=== PATIENT | female | born 1935 | race African-American/Black ===

== ENCOUNTER 2016-10-04 08:34 | Emergency (ER) | payer MEDICARE ==
--- NOTE | 2016-10-04 10:07 | ER Document Report ---
ED Head/Face/Scalp Injury - General Chief Complaint: Facial Injury Stated Complaint: FACE PAIN Notes: Patient is an 80-year-old female presents emergency department after a fall on Tuesday and came in for evaluation. Patient states that she was walking with family when she tripped over a speed bump and landed on the left part of her face. His any headache, loss of consciousness, vomiting, vision changes. She does have left. Orbital swelling and pain with an abrasion under her left eye. She is not on blood thinners otherwise denies any other complaints. She does not have any upper extremity or lower extremity pain. His any neck pain. Past medical history significant for hypertension Past surgical history significant for hysterectomy and tubal ligation Social history significant for a occasional alcohol use Allergies: Denies PCP is Dr. Walsh TRAVEL OUTSIDE OF THE [place] IN LAST 30 DAYS: No - Related Data Allergies/Adverse Reactions: No Known Drug Allergies Allergy (Verified 10/04/16 08:46) BEE STINGS Adverse Reaction (Uncoded 10/04/16 08:46) Dizziness Past Medical History - General Information source: Parent, Relative - son - Social History Smoking Status: Never Smoker Chew tobacco use (# tins/day): No Frequency of alcohol use: None Drug Abuse: None Family History: Reviewed & Not Pertinent Patient has suicidal ideation: No Patient has homicidal ideation: No - Past Medical History Cardiac Medical History: Reports: Hx Hypertension - CONTROLLED WITH MEDS Denies: Hx Heart Attack Pulmonary Medical History: Denies: Hx Asthma Neurological Medical History: Denies: Hx Cerebrovascular Accident, Hx Seizures Renal/ Medical History: Denies: Hx Peritoneal Dialysis GI Medical History: Denies: Hx Hepatitis, Hx Hiatal Hernia, Hx Ulcer Infectious Medical History: Denies: Hx Hepatitis Past Surgical History: Reports: Hx Hysterectomy. Denies: Hx Mastectomy, Hx Open Heart Surgery, Hx Pacemaker Review of Systems - Review of Systems Constitutional: No symptoms reported EENT: denies: Eye pain, Eye discharge, Blurred vision, Tearing, Double vision Cardiovascular: No symptoms reported Respiratory: No symptoms reported Gastrointestinal: No symptoms reported Genitourinary: No symptoms reported Female Genitourinary: No symptoms reported Musculoskeletal: No symptoms reported Skin: See HPI Hematologic/Lymphatic: No symptoms reported Neurological/Psychological: No symptoms reported Physical Exam - Vital signs Vitals: Temp Pulse Resp BP Pulse Ox 98.0 F 70 16 148/94 H 97 02/13/17 08:44 10/04/16 08:44 10/04/16 08:44 10/04/16 08:44 10/04/16 08:44 - Notes Notes: PHYSICAL EXAM GENERAL: Alert, interacts well. HEAD: Normocephalic, atraumatic. EYES: Pupils equal, round, and reactive to light. Extraocular movements intact. Evidence of left inferior periorbital swelling with superficial abrasion. Tender to palpation otherwise no other deformities. ENT: Oral mucosa moist, tongue midline. NECK: Full range of motion. Supple. Trachea midline. LUNGS: Clear to auscultation bilaterally, no wheezes, rales, or rhonchi. No respiratory distress. HEART: Regular rate and rhythm. No murmurs, gallops, or rubs. ABDOMEN: Soft, nondistended, nontender. No guarding, rebound, or rigidity.. Bowel sounds present in all 4 quadrants. EXTREMITIES: Pelvic rock test negative for pain Moves all 4 extremities spontaneously. No edema, radial and dorsalis pedis pulses 2/4 bilaterally. No cyanosis. NEUROLOGICAL: Alert and oriented x3. Normal speech. PSYCH: Normal affect, normal mood. SKIN: Warm, dry, normal turgor. No rashes or lesions noted. Course - Re-evaluation Re-evalutation: 10/04/16 11:46 Patient is an 80-year-old female presents emergency department after fall on Tuesday. She was felt is appropriate to come be evaluated and not for any changes in her symptoms. No acute findings on CT of head neck or facial bones. Will discharge patient home with instruction to follow up with the primary care provider as needed. Per [facility] protocol and guidelines, this case was discussed with supervising physician Dr. Louisa Reed prior to discharge - Vital Signs Vital signs: Temp Pulse Resp BP Pulse Ox 98.0 F 70 16 148/94 H 97 10/04/16 08:44 10/04/16 08:44 10/04/16 08:44 10/04/16 08:44 10/04/16 08:44 - Diagnostic Test Radiology reviewed: Image reviewed, Reports reviewed Discharge - Discharge Clinical Impression: Fall Qualifiers: Encounter type: initial encounter Qualified Code(s): W19.XXXA - Unspecified fall, initial encounter Condition: Good Disposition: HOME, SELF-CARE Instructions: Acetaminophen Additional Instructions: Abrasions of the Face A scraping injury of the face can result in scarring. While not as prone to infection as abrasions elsewhere, a facial abrasion requires careful care to minimize scar. Usually the abrasions cannot be dressed. Standard treatment is to apply a thin coating of an antibiotic ointment to the scrapes frequently (two or three times a day) until the abrasions are healed. Wash the wound daily with a mild soap (like Phisoderm) to remove excess crusting and debris. Stay away from dirt and irritating chemicals. Complete healing may take anywhere from ten days to a month. The healing time depends on the depth of the abrasion and on the amount of crushing of underlying tissues which occurred. Once healing is complete, use a sunscreen on the area for about six months. If any signs of infection occur (swelling, redness, increasing tenderness, red streaks, profuse purulent drainage from the abrasion, tender lumps in the neck on the side of the abrasion, or fever), see the doctor immediately. Soap Cleansing Gently wash the wound daily using a mild soap (like Ivory, Phisoderm, Neutrogena). Use warm water, rubbing gently until all debris, ooze, and crusting have been washed from the wound. Allow to dry briefly (about 10 minutes) after cleaning. Repeat this cleansing at least three times a day for the first two days and then once or twice a day. Forms: Elevated Blood Pressure Referrals: PAIGE CONTI [Primary Care Provider] - Follow up as needed
[2016-10-04 12:18] VITALS: BP 140/88
== END 2016-10-04 12:15 | disposition home or self-care (01) ==
LOC: ER 08:34
DX: S09.93XA Unspecified injury of face, initial encounter (principal); S00.81XA Abrasion of other part of head, initial encounter; I10 Essential (primary) hypertension; W01.198A Fall on same level from slipping, tripping and stumbling with subsequent striking against other object, initial encounter; Z91.030 Bee allergy status; Z90.710 Acquired absence of both cervix and uterus
CPT/HCPCS: 99284; 70450; 70486; 72125; L0120

== ENCOUNTER 2017-09-04 20:07 | Emergency (ER) | payer MEDICARE ==
[2017-09-04] MEDS ORDERED: NORMAL SALINE 1000 ML 1,000 ML IV ONE (21:50)
--- NOTE | 2017-09-04 23:21 | ER Document Report ---
ED Medical Screen (RME) - General Chief Complaint: Abdominal Pain Stated Complaint: ABDOMINAL PAIN Time Seen by Provider: 09/04/17 23:18 Mode of Arrival: Wheelchair Information source: Patient Notes: Patient presents complaining of denies any nausea, vomiting or diarrhea. Patient denies any fever or urinary symptoms. Patient does report an episode of a small amount of blood in her stool. Patient does report a history of diverticulitis and suspects the same today. Hx; HTN, diverticulitis, tubal ligation, partial hysterectomy I have greeted and performed a rapid initial assessment of this patient. A comprehensive ED assessment and evaluation of the patient, analysis of test results and completion of the medical decision making process will be conducted by additional ED providers. TRAVEL OUTSIDE OF THE [place] IN LAST 30 DAYS: No - Related Data Allergies/Adverse Reactions: No Known Drug Allergies Allergy (Verified 09/04/17 20:18) BEE STINGS Adverse Reaction (Uncoded 09/04/17 20:18) Dizziness Past Medical History - Past Medical History Cardiac Medical History: Reports: Hx Hypertension - CONTROLLED WITH MEDS Denies: Hx Heart Attack Pulmonary Medical History: Denies: Hx Asthma Neurological Medical History: Denies: Hx Cerebrovascular Accident, Hx Seizures Renal/ Medical History: Denies: Hx Peritoneal Dialysis GI Medical History: Denies: Hx Hepatitis, Hx Hiatal Hernia, Hx Ulcer Infectious Medical History: Denies: Hx Hepatitis Past Surgical History: Reports: Hx Hysterectomy. Denies: Hx Mastectomy, Hx Open Heart Surgery, Hx Pacemaker Physical Exam - Vital signs Vitals: Temp Pulse Resp BP Pulse Ox 99.0 F 120 H 18 173/79 H 94 09/04/17 20:17 09/04/17 20:17 09/04/17 20:17 09/04/17 20:17 09/04/17 20:17 - Abdominal Tenderness: Tender - Left lower quadrant Course - Vital Signs Vital signs: Temp Pulse Resp BP Pulse Ox 99.0 F 120 H 18 157/87 H 94 09/04/17 20:17 09/04/17 20:17 09/04/17 20:17 09/04/17 20:47 09/04/17 20:17
[2017-09-05 00:02] LABS: ABSOLUTE BASOPHILS # (AUTO) 0.1 10^3/uL (0.0-0.2); ABSOLUTE EOSINOPHILS # (AUTO) 0.1 10^3/uL (0.0-0.6); ABSOLUTE LYMPHOCYTES (AUTO) 2.2 10^3/uL (0.5-4.7); ABSOLUTE MONOCYTES (AUTO) 1.4 10^3/uL (0.1-1.4); ABSOLUTE NEUT (AUTO) 11.9 10^3/uL (1.7-8.2); BASOPHILS % (AUTO) 0.4 % (0-2); EOSINOPHILS % (AUTO) 0.4 % (0-6); HEMATOCRIT 43.1 % (36.0-47.0); HEMOGLOBIN 14.1 g/dL (12.0-15.5); LYMPHOCYTES % (AUTO) 14.1 % (13-45); MEAN CORPUSCULAR HEMOGLOBIN 29.3 pg (27.0-33.4); MEAN CORPUSCULAR HGB CONC 32.7 g/dL (32.0-36.0); MEAN CORPUSCULAR VOLUME 90 fl (80-97); MONOCYTES % (AUTO) 8.9 % (3-13); RED BLOOD COUNT 4.81 10^6/uL (3.72-5.28); RED CELL DISTRIBUTION WIDTH 13.3 % (11.5-14.0); SEGMENTED NEUTROPHILS % (AUTO) 76.2 % (42-78); TOTAL CELLS COUNTED % (AUTO) 100 %; WHITE BLOOD COUNT 15.6 10^3/uL (4.0-10.5)
[2017-09-05 00:07] LABS: INTERNATIONAL RATION (INR) 0.93; PARTIAL THROMBOPLASTIN TIME 32.7 SEC (23.5-35.8); PROTHROMBIN TIME 13.1 SEC (11.4-15.4)
[2017-09-05 00:24] LABS: PLATELET COUNT 103 10^3/uL (150-450)
[2017-09-05] MEDS ORDERED: MORPHINE SULFATE 10 MG/ML INJ IV ONE (00:37)
[2017-09-05] MEDS ORDERED: ONDANSETRON HCL INJ/PF 4 MG/2 ML SDV IV ONE (00:37)
--- NOTE | 2017-09-05 01:17 | RADIOLOGY REPORT (SQ) ---
EXAM DESCRIPTION: KUB/ABDOMEN (SINGLE VIEW) CLINICAL HISTORY: LLQ pain COMPARISON: None. FINDINGS: Single view of the abdomen. No dilated loops of large or small bowel. No free intraperitoneal air. Degenerative change of the lumbar spine. No definite abnormal calcifications. IMPRESSION: Nonobstructive bowel gas pattern.
[2017-09-05 01:18] LABS: ALANINE AMINOTRANSFERASE 22 U/L (9-52); ALBUMIN 3.8 g/dL (3.5-5.0); ALKALINE PHOSPHATASE 58 U/L (38-126); ANION GAP 14 (5-19); ASPARTATE AMINO TRANSFERASE 17 U/L (14-36); BILIRUBIN,DIRECT 0.2 mg/dL (0.0-0.4); BILIRUBIN,TOTAL 0.8 mg/dL (0.2-1.3); BLOOD UREA NITROGEN 9 mg/dL (7-20); CALCIUM 9.2 mg/dL (8.4-10.2); CARBON DIOXIDE 24 mmol/L (22-30); CHLORIDE 104 mmol/L (98-107); GLUCOSE 126 mg/dL (75-110); POTASSIUM 4.3 mmol/L (3.6-5.0); SODIUM 142.1 mmol/L (137-145); TOTAL PROTEIN 7.5 g/dL (6.3-8.2)
--- NOTE | 2017-09-05 02:22 | ER Document Report ---
ED General - General Chief Complaint: Abdominal Pain Stated Complaint: ABDOMINAL PAIN Time Seen by Provider: 09/04/17 23:18 Mode of Arrival: Wheelchair Notes: Patient is a 81-year-old female who presents with complaints of pain in left lower quadrant abdomen. Pain started on Tuesday. Some his pain is been there for almost 3 days. No fevers. Some nausea. No vomiting. No diarrhea. No blood in her stool. Patient has a history of diverticulitis. She says this feels similar. No other complaints at this time. TRAVEL OUTSIDE OF THE [place] IN LAST 30 DAYS: No - Related Data Allergies/Adverse Reactions: No Known Drug Allergies Allergy (Verified 09/04/17 20:18) BEE STINGS Adverse Reaction (Uncoded 09/04/17 20:18) Dizziness Past Medical History - General Information source: Patient - Social History Smoking Status: Unknown if Ever Smoked Frequency of alcohol use: None Drug Abuse: None Family History: Reviewed & Not Pertinent Patient has suicidal ideation: No Patient has homicidal ideation: No - Past Medical History Cardiac Medical History: Reports: Hx Hypertension - CONTROLLED WITH MEDS Denies: Hx Heart Attack Pulmonary Medical History: Denies: Hx Asthma Neurological Medical History: Denies: Hx Cerebrovascular Accident, Hx Seizures Renal/ Medical History: Denies: Hx Peritoneal Dialysis GI Medical History: Denies: Hx Hepatitis, Hx Hiatal Hernia, Hx Ulcer Infectious Medical History: Denies: Hx Hepatitis Past Surgical History: Reports: Hx Hysterectomy. Denies: Hx Mastectomy, Hx Open Heart Surgery, Hx Pacemaker Review of Systems - Review of Systems Notes: My Normal Review Basic REVIEW OF SYSTEMS: CONSTITUTIONAL : Denies fever, chills, or sweats. Denies recent illness. Cardiovascular: No chest pain. RESPIRATORY: Denies cough, cold, or chest congestion. Denies shortness of breath, difficulty breathing, or wheezing. GASTROINTESTINAL: Left lower quadrant abdominal pain. Denies nausea, vomiting, or diarrhea. Denies constipation. Last BM: GENITOURINARY: Denies difficulty urinating, painful urination, burning, frequency, or blood in urine. MUSCULOSKELETAL: Denies neck or back pain or joint pain or swelling. SKIN: Denies rash or skin lesions. NEUROLOGICAL: Denies altered mental status or loss of consciousness. Denies headache. Denies weakness or paralysis or loss of use of either side. Denies problems with gait or speech. Denies sensory or motor loss. ALL OTHER SYSTEMS REVIEWED AND NEGATIVE. Physical Exam - Vital signs Vitals: Temp Pulse Resp BP Pulse Ox 99.0 F 120 H 18 173/79 H 94 09/04/17 20:17 09/04/17 20:17 09/04/17 20:17 09/04/17 20:17 09/04/17 20:17 - Notes Notes: General Appearance: Well nourished, alert, cooperative, no acute distress, mild to moderate obvious discomfort. Vitals: reviewed, See vital signs table. Head: no swelling or tenderness to the head Eyes: PERRL, EOMI, Conjuctiva clear Mouth: No decreasd moisture Lungs: No wheezing, No rales, No rhonci, No accessory muscle use, good air exchange bilaterally. Heart: Normal rate, Regular rythm, No murmur, no rub Abdomen: Normal BS, soft, No rigidity, mild to moderate left lower quadrant abdominal tenderness palpation, remainder of abdomen is nontender, no guarding, no rebound, Extremities: strength 5/5 in all extremities, good pulses in all extremities, no swelling or tenderness in the extremities, no edema. Skin: warm, dry, appropriate color, no rash Neuro: speech clear, oriented x 3, normal affect, responds appropriately to questions. Course - Re-evaluation Re-evalutation: 09/05/17 02:22 On reevaluation patient's pain is much improved after the small dose of morphine. She looks well. She has a leukocytosis and tachycardia and is 81 years old I think a CT scan is appropriate to see if this is diverticulitis or a complicated form or different pathology. 09/05/17 03:52 Evaluation patient is feeling much improved. Her abdomen is soft and she says no longer hurts. Her vital signs have normalized after treatment of her pain. Her CT scan shows simple acute diverticulitis without complication such as abscess. We will treat her out patiently. Patient looks very well and I feel safe for outpatient treatment. I informed her and her son that she is return to ER immediately if she develops severe pain, vomiting, fevers, or feels that she is worsening in any way. They agree with plan and patient will be discharged home. Patient to follow-up with her doctor in 2 days. Dictation of this chart was performed using voice recognition software; therefore, there may be some unintended grammatical errors. - Vital Signs Vital signs: Temp Pulse Resp BP Pulse Ox 99.0 F 120 H 18 157/87 H 94 09/04/17 20:17 09/04/17 20:17 09/04/17 20:17 09/04/17 20:47 09/04/17 20:17 - Laboratory Result Diagrams: 09/04/17 23:25 09/05/17 00:54 Laboratory results interpreted by me: 09/04/17 09/05/17 23:25 00:54 WBC 15.6 H Plt Count 103 L Absolute Neutrophils 11.9 H Glucose 126 H Discharge - Discharge Clinical Impression: Diverticulitis Condition: Good Disposition: HOME, SELF-CARE Additional Instructions: Diverticulitis You have been diagnosed as having diverticulitis. This is an inflammation of a small pouch attached to the colon, called a diverticulum. Many of these small pouches can form on the colon as you get older. They are often caused by constipation. When inflamed or infected, symptoms arise -- usually abdominal pain, constipation or diarrhea, fever, and blood in the stool. Severe diverticulitis may require hospitalization. More mild cases are usually treated with antibiotics and clear liquid diet. As you improve, a diet low in residue (one which forms little stool) is prescribed. When you are better, you should eat a high-fiber diet. Stool softeners ( like Metamucil) are usually recommended. Call the doctor or go to the hospital if there is increasing pain, vomiting , high fever, large amounts of blood passed, or if bowel movements cease. Please avoid any foods that remain hard in small pieces after you chew them. Examples are foods such as nuts and seeds. Eat softer foods over the next week. Please take antibiotics as prescribed. Please follow-up with your doctor on Tuesday for reevaluation. Please return to the ER immediately if you have fevers, worsening pain, vomiting, or feel unwell in any way. Take Tylenol for mild recurrent pain. Return to the ER if your pain becomes too great for Tylenol. Prescriptions: Ciprofloxacin HCl [Cipro 500 mg Tablet] 500 mg PO BID #14 tablet Metronidazole [Flagyl 500 mg Tablet] 500 mg PO Q6H #28 tablet Referrals: PAIGE CONTI MD [Primary Care Provider] - 09/06/17
--- NOTE | 2017-09-05 03:46 | RADIOLOGY REPORT (SQ) ---
EXAM DESCRIPTION: CT ABDOMEN AND PELVIS WITH CONTRAST CLINICAL HISTORY: LLQ abdominal pain. history of diverticulitis COMPARISON: 04/22/2012 TECHNIQUE: CT of the abdomen and pelvis are performed during IV bolus administration of 91.2 mL of Isovue-370. DLP: 1482.7 mGycm FINDINGS: Abdomen: The liver has normal size and density. Tiny hypodensities in the liver too small for accurate characterization and may represent tiny cysts or hemangiomas and are not significantly changed from the comparison study. No calcified gallstones. The spleen, pancreas, and adrenal glands are unremarkable. The kidneys have normal size and contour without evidence of solid mass or hydronephrosis. Aortoiliac atherosclerosis. The portal vein patent. The proximal visceral and renal arteries are patent. The stomach and duodenum have normal course. Pelvis: Prior hysterectomy. Urinary bladder is unremarkable. No free pelvic fluid or lymphadenopathy. Short segment pericolic fat stranding without well-circumscribed fluid collection. Scattered diverticula throughout the colon. No dilated loops of large or small bowel. Normal appendix. The visualized lung bases are clear. No destructive bone lesions identified. Degenerative spondylosis of the visualized thoracic and lumbar spine. IMPRESSION: 1. Findings compatible with acute diverticulitis of the sigmoid colon without diverticular abscess formation at this time. This exam was performed according to our departmental dose-optimization program, which includes automated exposure control, adjustment of the mA and/or kV according to patient size and/or use of iterative reconstruction technique.
[2017-09-05] MEDS ORDERED: CIPROFLOXACIN HCL 500 MG TABLET PO ONE (03:57)
[2017-09-05] MEDS ORDERED: METRONIDAZOLE 500 MG TABLET PO ONE (03:57)
[2017-09-05 04:04] LABS: APPEARANCE,URINE CLEAR; BILIRUBIN,URINE NEGATIVE (NEGATIVE); COLOR,URINE YELLOW; GLUCOSE, URINE NEGATIVE (NEGATIVE); KETONES,URINE NEGATIVE (NEGATIVE); LEUKOCYTE ESTERASE,URINE TRACE (NEGATIVE); NITRITE,URINE NEGATIVE (NEGATIVE); PROTEIN,URINE NEGATIVE (NEGATIVE); URINE SPECIFIC GRAVITY 1.024; UROBILINOGEN,URINE NEGATIVE mg/dL (<2.0)
[2017-09-05 04:14] VITALS: BP 141/71
== END 2017-09-05 04:13 | disposition home or self-care (01) ==
LOC: ER 20:07
DX: K57.92 Diverticulitis of intestine, part unspecified, without perforation or abscess without bleeding (principal); R10.32 Left lower quadrant pain
CPT/HCPCS: 99284; 96361; 96374; 96375; 36415; 85025; 85610; 85730; 80053; 81001; 74018; 74177; A9270 ×2; J2270; J2405; J7030

== ENCOUNTER 2019-02-15 21:51 | Emergency (ER) | payer MEDICARE ==
--- NOTE | 2019-02-15 23:58 | ER Document Report ---
ED Medical Screen (RME) - General Chief Complaint: Fall Stated Complaint: FALL Time Seen by Provider: 02/15/19 23:52 Primary Care Provider: PAIGE CONTI MD [Primary Care Provider] - Follow up as needed Notes: 83-year-old -[place] female coming in today with chief complaint of head injury. She was walking up steps and lost her balance and fell backwards and hit the back of her head. Also having some neck stiffness. Also have a bilateral hip pain. She is not anticoagulated I have treated and performed a rapid initial assessment of this patient. A comprehensive ED assessment and evaluation of the patient, analysis of test results and completion of medical decision making process will be conducted by additional ED providers. PHYSICAL EXAMINATION: GENERAL: Well-appearing, well-nourished and in no acute distress. A&Ox4. Answers questions appropriately. LUNGS: Breath sounds clear to auscultation bilaterally and equal. No wheezes rales or rhonchi. HEART: Regular rate and rhythm without murmurs, rubs, gallops. ABDOMEN: Soft, nondistended abdomen. No guarding, no rebound. Normal bowel sounds present. No CVA tenderness bilaterally. + mild epigastric tenderness (cannot elicit thorough abd exam w/o table, however). Extremities: No cyanosis, clubbing, or edema b/l. NEUROLOGICAL: Normal speech, normal gait. PSYCH: Normal mood, normal affect. TRAVEL OUTSIDE OF THE [place] IN LAST 30 DAYS: No - Related Data Allergies/Adverse Reactions: No Known Drug Allergies Allergy (Verified 02/15/19 21:55) BEE STINGS Adverse Reaction (Uncoded 02/15/19 21:55) Dizziness Past Medical History - Past Medical History Cardiac Medical History: Reports: Hx Hypertension - CONTROLLED WITH MEDS Denies: Hx Heart Attack Pulmonary Medical History: Denies: Hx Asthma Neurological Medical History: Denies: Hx Cerebrovascular Accident, Hx Seizures Renal/ Medical History: Denies: Hx Peritoneal Dialysis GI Medical History: Denies: Hx Hepatitis, Hx Hiatal Hernia, Hx Ulcer Infectious Medical History: Denies: Hx Hepatitis Past Surgical History: Reports: Hx Hysterectomy. Denies: Hx Mastectomy, Hx Open Heart Surgery, Hx Pacemaker Doctor's Discharge - Discharge Referrals: PAIGE CONTI MD [Primary Care Provider] - Follow up as needed
--- NOTE | 2019-02-16 01:33 | RADIOLOGY REPORT (SQ) ---
EXAM DESCRIPTION: CT HEAD WITHOUT IV CONTRAST COMPLETED DATE/TME: 02/15/2019 23:53 CLINICAL HISTORY: fall hit head COMPARISON: 10/04/2016 TECHNIQUE: Axial CT of the head obtained from the skull apex to the skull base without contrast. FINDINGS: No acute intracranial hemorrhage identified. No mass, mass effect, shift of the midline, abnormal extra-axial fluid collection or CT evidence of acute ischemic change identified. The ventricular system and sulcal spaces are mildly enlarged compatible with mild cerebral atrophy. Scattered areas of hypodensity throughout the supratentorial white matter are nonspecific and may be related to chronic small vessel ischemic change. The visualized paranasal sinuses and the mastoids are clear. No skull fracture identified. Visualized orbits and globes are unremarkable. Atherosclerotic calcification of the intracranial internal carotid arteries. DLP: 990.56 mGy-cm IMPRESSION: 1. No acute intracranial abnormality by CT criteria. This exam was performed according to our departmental dose-optimization program, which includes automated exposure control, adjustment of the mA and/or kV according to patient size and/or use of iterative reconstruction technique.
--- NOTE | 2019-02-16 01:35 | RADIOLOGY REPORT (SQ) ---
CT cervical spine without contrast on 02/16/2019 at 1:05 AM CLINICAL INDICATION: Neck pain after fall TECHNIQUE: Multiple axial images are obtained throughout the cervical spine without the administration of contrast. Sagittal and coronal reformatted images are also performed and reviewed. This exam was performed according to our departmental dose-optimization program, which includes automated exposure control, adjustment of the mA and/or kV according to patient size and/or use of iterative reconstruction technique. Total DLP is 410.45 mGy*cm. COMPARISON: 10/04/2016 FINDINGS: Diffuse degenerative disc disease is noted throughout the cervical spine worse from C4 through C7. There is grade 1 spondylolisthesis at C3-4 secondary to degenerative facet disease. Facet arthropathy is noted bilaterally worse in the mid to upper cervical spine. Reformatted images reveal otherwise normal alignment of the cervical spine. There is no prevertebral soft tissue swelling. There are no acute fracture lines. At the C3-4 level, broad-based disc osteophyte complex combines with the spondylolisthesis producing mild canal stenosis and moderate bilateral foraminal narrowing. At the C4-5 level, broad-based disc osteophyte complex with a central disc protrusion produces moderate central canal stenosis and moderate left and [id number] right foraminal narrowing. At the C5-6 level, calcified disc osteophyte complex with a larger left paracentral component produces moderate canal stenosis and moderate bilateral foraminal narrowing. At the C6-7 level, calcified disc osteophyte complex with a larger central component produces moderate central canal stenosis and moderate bilateral foraminal narrowing. IMPRESSION: Diffuse degenerative changes as above with no acute abnormality.
--- NOTE | 2019-02-16 01:43 | RADIOLOGY REPORT (SQ) ---
EXAM: X-ray hip two views bilateral CLINICAL DATA: 83-year-old female status post fall with bilateral hip pain TECHNICAL DATA: Three x-ray views of the pelvis and bilateral hips were performed on 02/16/2019 at 1:23 AM. COMPARISONS: CT abdomen and pelvis performed on 09/05/2017 FINDINGS: There is no evidence of fracture or dislocation. The hip joints are preserved without significant degenerative change. There are mild degenerative changes of the pubic symphysis. The sacroiliac joints are intact. There are degenerative changes of the visualized portions of the lower lumbar spine. No focal lytic or sclerotic bone lesions are identified.. No focal lytic or sclerotic bone lesions are seen. Bone mineralization is normal. No focal soft tissue abnormalities are identified. IMPRESSION: No evidence of acute osseous injury involving the pelvis or hips. There are mild degenerative changes of the visualized lower lumbar spine and pelvis.
--- NOTE | 2019-02-16 02:49 | ER Document Report ---
ED General - General Chief Complaint: Fall Stated Complaint: FALL Time Seen by Provider: 02/15/19 23:52 Primary Care Provider: PAIGE CONTI MD [Primary Care Provider] - Follow up as needed TRAVEL OUTSIDE OF THE [place] IN LAST 30 DAYS: No - HPI Notes: Patient is a very pleasant 83-year-old female who presents to the emergency department for evaluation after a fall. She states she was going up the stairs when her right ankle gave way. This is happened in the past. She fell backwards, hitting her head. She denies loss of consciousness. She has pain in bilateral hips, left greater than right. She has been walking and standing without difficulty. She denies any dizziness. No difficulty seeing, speaking, or swallowing. She is not on any sort of anticoagulation. - Related Data Allergies/Adverse Reactions: No Known Drug Allergies Allergy (Verified 02/15/19 21:55) BEE STINGS Adverse Reaction (Uncoded 02/15/19 21:55) Dizziness Home Medications: Unknown antihypertensive Past Medical History - General Information source: Patient - Social History Smoking Status: Never Smoker Family History: Reviewed & Not Pertinent Patient has suicidal ideation: No Patient has homicidal ideation: No - Past Medical History Cardiac Medical History: Reports: Hx Hypertension - CONTROLLED WITH MEDS Denies: Hx Heart Attack Pulmonary Medical History: Denies: Hx Asthma Neurological Medical History: Denies: Hx Cerebrovascular Accident, Hx Seizures Renal/ Medical History: Denies: Hx Peritoneal Dialysis GI Medical History: Denies: Hx Hepatitis, Hx Hiatal Hernia, Hx Ulcer Infectious Medical History: Denies: Hx Hepatitis Past Surgical History: Reports: Hx Hysterectomy. Denies: Hx Mastectomy, Hx Open Heart Surgery, Hx Pacemaker Review of Systems - Review of Systems Constitutional: No symptoms reported EENT: No symptoms reported Cardiovascular: No symptoms reported Respiratory: No symptoms reported Gastrointestinal: No symptoms reported Genitourinary: No symptoms reported Musculoskeletal: See HPI Skin: No symptoms reported Neurological/Psychological: No symptoms reported Physical Exam - Vital signs Vitals: Temp Pulse Resp BP Pulse Ox 97.6 F 69 20 171/73 H 99 02/16/19 02:57 02/16/19 02:57 02/16/19 02:57 02/16/19 02:57 02/16/19 02:57 Notes: Temperature 98.4, pulse 88, blood pressure 148/83, respirations 18 and nonlabored, 96% on room air - Notes Notes: Vital signs reviewed, please refer to chart. Head is normocephalic, atraumatic. No palpable hematoma, no significant tenderness over the occiput where head injury was obtained. Pupils equal round, reactive to light. Neck is supple without meningismus. Heart is regular rate and rhythm. Lungs are clear to auscultation bilaterally. Abdomen is soft, nontender, normoactive bowel sounds throughout. Extremities without cyanosis, clubbing. Posterior calves are nontender. Patient does have some tenderness to palpation over the left inguin al area. No greater trochanter tenderness to palpation. Full active and passive range of motion of bilateral lower extremities, including internal and external rotation of the hips, yields no pain. Peripheral pulses are equal. Skin is warm and dry. Patient is awake, alert, oriented x3. Cranial nerves II - XII are grossly intact without focal neurological deficits. Strength is plus 5 out of 5 bilateral lower extremities. Sensation is intact. Reflexes symmetrical. Intact [id number], rapid alternating movements, [id number]. Course - Re-evaluation Re-evalutation: 02/16/19 02:47 Patient presents to the emergency department for evaluation. CT scan of the head and neck were unremarkable, plain films of the hip are unremarkable as well. She was notified that sometimes subtle fractures may be missed initially, and if she continues to have significant pain or symptoms she needs to be reimaged. She voiced understanding to this. Otherwise she is to take Tylenol as needed for pain. She is to return to the ED with worsening or new concerning symptoms of any sort. - Vital Signs Vital signs: Temp Pulse Resp BP Pulse Ox 97.6 F 69 20 171/73 H 99 02/16/19 02:57 02/16/19 02:57 02/16/19 02:57 02/16/19 02:57 02/16/19 02:57 - Diagnostic Test Radiology reviewed: Reports reviewed Radiology results interpreted by me: 02/16/19 02:[address] 02/15/19 23:53 IMPRESSION: Diffuse degenerative changes as above with no acute abnormality. Head CT 02/15/19 23:53 IMPRESSION: 1. No acute intracranial abnormality by CT criteria. This exam was performed according to our departmental dose-optimization program, which includes automated exposure control, adjustment of the mA and/or kV according to patient size and/or use of iterative reconstruction technique. Hip X-Ray 02/15/19 23:54 IMPRESSION: No evidence of acute osseous injury involving the pelvis or hips. There are mild degenerative changes of the visualized lower lumbar spine and pelvis. Discharge - Discharge Clinical Impression: Closed head injury Qualifiers: Encounter type: initial encounter Qualified Code(s): S09.90XA - Unspecified injury of head, initial encounter Strain of left inguinal muscle Qualifiers: Encounter type: initial encounter Qualified Code(s): S39.013A - Strain of muscle, fascia and tendon of pelvis, initial encounter Fall from standing Qualifiers: Encounter type: initial encounter Qualified Code(s): W19.XXXA - Unspecified fall, initial encounter Condition: Good Disposition: HOME, SELF-CARE Instructions: Head Injury Precautions ([facility]), Muscle Strain ([facility]) Additional Instructions: No clear fracture or abnormality was noted on your imaging today. If you continue to have pain, he should repeat x-ray of your pelvis and hip in 1 to 2 weeks. You can do that either here or with your primary care physician. Tylenol as needed for pain. Return to the emergency department with worsening or new concerning symptoms of any sort. Referrals: PAIGE CONTI MD [Primary Care Provider] - Follow up as needed
[2019-02-16] MEDS ORDERED: HYDROCODONE/ACETAMINOPHEN 5-325 MG TABLET PO ONE (03:00)
[2019-02-16] MEDS ORDERED: ONDANSETRON 4 MG TAB.RAPDIS PO ONE (03:01)
[2019-02-16 03:16] VITALS: BP 171/73
== END 2019-02-16 02:57 | disposition home or self-care (01) ==
LOC: ER 21:51
DX: S09.90XA Unspecified injury of head, initial encounter (principal); S39.013A Strain of muscle, fascia and tendon of pelvis, initial encounter; M25.552 Pain in left hip; M25.551 Pain in right hip; W10.9XXA Fall (on) (from) unspecified stairs and steps, initial encounter; M47.9 Spondylosis, unspecified; I10 Essential (primary) hypertension
CPT/HCPCS: 99284; 73522; 70450; 72125; A9270 ×2; S0119

== ENCOUNTER → 2019-12-04 | Outpatient (CLI) | payer MEDICARE ==
--- NOTE | 2019-12-04 15:27 | RADIOLOGY REPORT (SQ) ---
EXAM DESCRIPTION: MRI LUMBAR SPINE WITHOUT IMAGES COMPLETED DATE/TIME: 12/04/2019 2:42 pm REASON FOR STUDY: M43.16 SPONDYLOLISTHESIS, LUMBAR REGION M43.16 SPONDYLOLISTHESIS, LUMBAR REGION COMPARISON: None. TECHNIQUE: Sagittal and Axial imaging includes T1, T2, STIR and gradient echo sequences. Coronal T2/ HASTE imaging. LIMITATIONS: None. FINDINGS: VISUALIZED UPPER ABDOMEN: Limited evaluation. No acute or suspicious findings suggested. SEGMENTATION: No transitional anatomy. The lowest well-developed disc space is labeled L5-S1. ALIGNMENT: Grade 1 anterolisthesis of L4 on L5. VERTEBRAE: Intact. BONE MARROW: Normal. No marrow replacement or reactive changes. DISC SIGNAL: Maintained disc height. Loss of normal water signal throughout the lumbar spine consist ent with desiccation. POSTERIOR ELEMENTS: Generally intact. No pars defect evident. HARDWARE: None in the spine. CORD AND CONUS: Normal in size and signal intensity. Conus at the appropriate level. SOFT TISSUES: No aortic aneurysm seen. No bulky retroperitoneal adenopathy or mass. No paraspinal mas s or fluid. L1-L2: There is annular disc bulging with bilateral facet arthropathy. This results in bilateral for aminal narrowing. Mild central stenosis. L2-L3: Mild annular bulge. Bilateral facet arthropathy. No significant central stenosis or foramina l narrowing. L3-L4: Mild annular disc bulging with bilateral facet arthropathy. There is flattening of the thecal sac. There is a moderate bilateral foraminal narrowing left greater than right. L4-L5: Grade 1 anterolisthesis of L4 on L5 along with annular disc bulging. There is bilateral facet arthropathy. This results in severe central canal stenosis. There is bilateral foraminal stenosis left greater than right. L5-S1: No significant spinal stenosis or exit foraminal stenosis. LOWER THORACIC: Broad-based disc/osteophyte complexes are noted. No high-grade central stenosis. SACRUM: Visualized upper sacrum intact. OTHER: No other significant findings. IMPRESSION: 1. Annular disc bulging and facet arthropathy at L1-L2 resulting in mild central stenos is and bilateral foraminal stenosis. 2. Moderate bilateral foraminal narrowing at L3-L4 left greater than right. This is secondary to an nular disc bulging and facet arthropathy. 3. Grade 1 anterolisthesis of L4 on L5 along with annular disc bulging. There is bilateral facet ar thropathy. This combination results in severe central stenosis and bilateral foraminal stenosis left greater than right. TECHNICAL DOCUMENTATION: JOB ID: [id number] 2010 [employer]- All Rights Reserved Reading location - IP/workstation name: [email or web address]
== END ==
LOC: RAD 13:33
PROVIDERS: ATTEND Orthopaedic Surgery
DX: M43.16 Spondylolisthesis, lumbar region (principal)
CPT/HCPCS: 72148

== ENCOUNTER 2020-08-14 05:43 | Emergency (ER) | payer MEDICARE ==
--- NOTE | 2020-08-14 07:47 | ER Document Report ---
ED General - General Chief Complaint: Back Pain Stated Complaint: LOWER BACK PAIN Time Seen by Provider: 08/14/20 07:25 Primary Care Provider: JESSICA GUEVARA JR, DO [Primary Care Provider] - Follow up as needed TRAVEL OUTSIDE OF THE [place] IN LAST 30 DAYS: No - HPI Notes: Chief complaint: Pain left lower back, left lower quadrant abdomen and left hip History of present illness: Elderly female followed by Dr. Guevara with history of chronic lumbar spondylolysis and chronic pain syndrome being seen by pain management clinic for intermittent steroid injections of lower back and also taking Percocet intermittently with incomplete relief of her discomfort comes in complaining of worsening left lower back pain, left lower quadrant abdominal pain and left hip pain. Aggravated by movement and coughing. No loss of bowel bladder control. No sensorimotor deficit. No nausea vomiting. No fever. Patient is living by herself and is accompanied today by her son who seems very concerned about her. He says she is having trouble ambulating due to the pain. Weight is stable. - Related Data Allergies/Adverse Reactions: No Known Drug Allergies Allergy (Verified 02/15/19 21:55) BEE STINGS Adverse Reaction (Uncoded 02/15/19 21:55) Dizziness Home Medications: hydrocodone/acetaminophen Past Medical History - General Information source: Patient, Relative, [facility] Records - Social History Smoking Status: Former Smoker Chew tobacco use (# tins/day): Yes Frequency of alcohol use: Occasional Drug Abuse: None Lives with: Alone Family History: Reviewed & Not Pertinent - Past Medical History Cardiac Medical History: Reports: Hx Hypertension - CONTROLLED WITH MEDS Denies: Hx Heart Attack Pulmonary Medical History: Denies: Hx Asthma Neurological Medical History: Denies: Hx Cerebrovascular Accident, Hx Seizures Endocrine Medical History: Denies: Hx Diabetes Mellitus Type 1, Hx Diabetes Mellitus Type 2 Renal/ Medical History: Reports: None. Denies: Hx Peritoneal Dialysis Malignancy Medical History: Reports: None GI Medical History: Reports: None. Denies: Hx Hepatitis, Hx Hiatal Hernia, Hx Ulcer Musculoskeletal Medical History: Reports Hx Arthritis Infectious Medical History: Denies: Hx Hepatitis Past Surgical History: Reports: Hx Hysterectomy. Denies: Hx Mastectomy, Hx Open Heart Surgery, Hx Pacemaker Review of Systems - Review of Systems Notes: Constitutional: Negative for fever. HENT: Negative for sore throat. Eyes: Negative for visual changes. Cardiovascular: Negative for chest pain. Respiratory: Negative for shortness of breath. Gastrointestinal: As per HPI. Genitourinary: Negative for dysuria. Musculoskeletal: As per HPI. Skin: Negative for rash. Neurological: Negative for headaches, focal weakness or numbness. 10 point ROS negative except as marked above and in HPI. Physical Exam - Vital signs Vitals: Temp Resp BP Pulse Ox 98.4 F 14 191/95 H 99 08/14/20 05:53 08/14/20 05:53 08/14/20 05:53 08/14/20 05:53 - Notes Notes: GENERAL: Frail elderly female who appears moderately uncomfortable. SKIN: Good turgor no rashes. HEAD: Normocephalic atraumatic. EYES: PERRLA. EOMI. Conjunctivae and sclerae clear. EARS: CANALS AND TMS CLEAR. NOSE: CLEAR. MOUTH: Moist mucosa. Good dentition. No stridor or edema. No drooling. NECK: Supple. No masses or thyromegaly. No adenopathy. Carotids 2+ without bruits. No JVD. BACK: Palpable spasm tenderness left lumbar area. Positive straight leg raising test on the left at 15 degrees. CHEST: Respirations unlabored. Breath sounds clear and symmetrical. HEART: Regular rhythm. No murmur gallop or rub. ABDOMEN: Soft nontender without masses, organomegaly or rebound. Bowel sounds normally active. No bruits. GENITALIA: Deferred. EXTREMITIES: Pain with active or passive movement of left hip. No edema. No calf tenderness. Cap refill less than 1.5 seconds. Dorsalis pedis and posterior tibial pulses 3+ and symmetrical. NEUROLOGICAL: GCS 15. Alert and oriented x3. Normal gait. Fluent speech. Cranial nerves II through XII intact. Sensorimotor and cerebellar normal. Normal tone. PSYCHIATRIC: Appropriate affect. Course - Re-evaluation Re-evalutation: 08/14/20 12:18 This is an elderly lady with longstanding degenerative changes dorsal and lumbar spine and associated chronic pain syndrome who is brought in today by her family because she feels that her pain is getting progressively worse. She is taking oxycodone at home. She is seeing a pain management clinic and getting steroid injections in her back. There is been no acute trauma. Evaluation here today shows no neurologic deficit. She does have some questionable straight leg raising positivity on the left. No bowel or bladder symptoms. CT of abdomen and pelvis obtained showing advanced degenerative changes of dorsal and lumbar spine with evidence of degenerative disc disease. No other significant findings. Patient was given a dose of IV Toradol here. I am also going to give her a shot of Decadron prior to discharge and ask her to stay on her current pain medications and follow-up with her pain management doctor. She had a few white cells in her urine specimen. On a culture the urine although we had to treat her with 5 days of an oral antibiotic. Findings, clinical impression and plan of treatment have been discussed with patient/family. Understanding of current findings and recommendations has been acknowledged by them and there is agreement regarding disposition and follow-up. - Vital Signs Vital signs: Temp Pulse Resp BP Pulse Ox 98.4 F 20 174/78 H 100 08/14/20 05:53 08/14/20 07:03 08/14/20 07:03 08/14/20 07:03 - Laboratory Results Result Diagrams: 08/14/20 08:30 08/14/20 08:30 Laboratory Results Interpreted: 08/14/20 08/14/20 08/14/20 08:30 08:30 08:30 WBC 10.9 H Plt Count 116 L Glucose 124 H Ur Leukocyte Esterase TRACE H Critical Laboratory Results Reviewed: Yes Attending or Supervising Physician who Reviewed Labs: ELTON HARO - Radiology Results Radiology Results Interpreted: 08/14/20 12:16 Abdomen/Pelvis CT 08/14/20 07:39 IMPRESSION: 1. Colonic diverticulosis without evidence of diverticulitis. No bowel obstruction. Critical Radiology Results Reviewed: No Critical Results Discharge - Discharge Clinical Impression: Sciatica associated with disorder of lumbar spine, Chronic pain syndrome, Cystitis Condition: Stable Disposition: HOME, SELF-CARE Additional Instructions: Continue usual medications. Follow-up with your primary care physician and your pain management doctor. Request referral to a physical therapist from your primary care physician. Return here as needed for new or worsening symptoms: Pain that is worsening or unimproved Uncontrolled vomiting High fever or shaking chills Overall worsening Prescriptions: Nitrofurantoin Monohyd/M-Cryst [Macrobid 100 mg Capsule] 100 mg PO BID 5 Days #10 cap Referrals: JESSICA GUEVARA JR, DO [Primary Care Provider] - Follow up as needed
[2020-08-14 09:05] LABS: ABSOLUTE EOSINOPHILS # (AUTO) 0.1 10^3/uL (0.0-0.6); ABSOLUTE LYMPHOCYTES (AUTO) 2.3 10^3/uL (0.5-4.7); ABSOLUTE MONOCYTES (AUTO) 1.1 10^3/uL (0.1-1.4); ABSOLUTE NEUT (AUTO) 7.4 10^3/uL (1.7-8.2); BASOPHILS % (AUTO) 0.5 % (0-2); EOSINOPHILS % (AUTO) 0.5 % (0-6); HEMATOCRIT 38.1 % (36.0-47.0); HEMOGLOBIN 12.7 g/dL (12.0-15.5); LYMPHOCYTES % (AUTO) 21.3 % (13-45); MEAN CORPUSCULAR HEMOGLOBIN 29.2 pg (27.0-33.4); MEAN CORPUSCULAR HGB CONC 33.3 g/dL (32.0-36.0); MEAN CORPUSCULAR VOLUME 88 fl (80-97); MONOCYTES % (AUTO) 10.2 % (3-13); PLATELET COUNT 116 10^3/uL (150-450); RED BLOOD COUNT 4.34 10^6/uL (3.72-5.28); RED CELL DISTRIBUTION WIDTH 13.2 % (11.5-14.0); SEGMENTED NEUTROPHILS % (AUTO) 67.5 % (42-78); TOTAL CELLS COUNTED % (AUTO) 100 %; WHITE BLOOD COUNT 10.9 10^3/uL (4.0-10.5)
[2020-08-14 09:15] LABS: ALKALINE PHOSPHATASE 61 U/L (38-126); ANION GAP 9 (5-19); ASPARTATE AMINO TRANSFERASE 23 U/L (14-36); BILIRUBIN,DIRECT 0.2 mg/dL (0.0-0.4); BLOOD UREA NITROGEN 9 mg/dL (7-20); CALCIUM 9.1 mg/dL (8.4-10.2); CARBON DIOXIDE 26 mmol/L (22-30); CHLORIDE 104 mmol/L (98-107); GLUCOSE 124 mg/dL (75-110); POTASSIUM 4.3 mmol/L (3.6-5.0)
[2020-08-14 09:19] LABS: APPEARANCE,URINE CLEAR; BILIRUBIN,URINE NEGATIVE (NEGATIVE); COLOR,URINE YELLOW; GLUCOSE, URINE NEGATIVE (NEGATIVE); KETONES,URINE NEGATIVE (NEGATIVE); LEUKOCYTE ESTERASE,URINE TRACE (NEGATIVE); NITRITE,URINE NEGATIVE (NEGATIVE); PROTEIN,URINE NEGATIVE (NEGATIVE); URINE SPECIFIC GRAVITY 1.009; UROBILINOGEN,URINE NEGATIVE mg/dL (<2.0)
--- NOTE | 2020-08-14 11:00 | RADIOLOGY REPORT (SQ) ---
EXAM DESCRIPTION: CT ABD/PELVIS WITH IV ONLY IMAGES COMPLETED DATE/TIME: 08/14/2020 9:15 am REASON FOR STUDY: LLQ pain. Prior hysterectomy. COMPARISON: None. TECHNIQUE: CT scan of the abdomen and pelvis performed using helical scanning technique with dynamic intravenous contrast injection. No oral contrast. Images reviewed with lung, soft tissue, and bone windows. Reconstructed coronal and sagittal MPR images reviewed. Delayed images for evaluation of the urinary system also acquired. All images stored on PACS. All CT scanners at this facility use dose modulation, iterative reconstruction, and/or weight based d osing when appropriate to reduce radiation dose to as low as reasonably achievable (ALARA). [facility]: Dose Right [facility]: CareDose [facility]: Dose Right [facility]: Teradose 4D [facility]: CatchThatBus CONTRAST TYPE AND DOSE: contrast/concentration: Isovue 350.00 mmol/ml; Total Contrast Delivered: 96. 0 ml; Total Saline Delivered: 30.7 ml RENAL FUNCTION: GFR > 60. RADIATION DOSE: CT Rad equipment meets quality standard of care and radiation dose reduction techniq ues were employed. CTDIvol: 13.0 - 17.6 mGy. DLP: 1640 mGy-cm.. LIMITATIONS: None. FINDINGS: LOWER CHEST: No significant findings. No nodules or infiltrates. LIVER: Liver has normal size and contour. Tiny hepatic cyst at the right hepatic dome unchanged. No suspicious hepatic lesions. Hepatic and portal veins are patent. No biliary ductal dilation. SPLEEN: Normal size. No focal lesions. PANCREAS: No masses. No significant calcifications. No adjacent inflammation or peripancreatic fluid collections. Pancreatic duct not dilated. GALLBLADDER: No identified stones by CT criteria. No inflammatory changes to suggest cholecystitis. ADRENAL GLANDS: No significant masses or asymmetry. RIGHT KIDNEY AND URETER: No solid masses. No significant calcifications. No hydronephrosis or hyd roureter. LEFT KIDNEY AND URETER: No solid masses. No significant calcifications. No hydronephrosis or hydr oureter. AORTA AND VESSELS: No aneurysm. No dissection. Renal arteries, SMA, celiac without stenosis. RETROPERITONEUM: No retroperitoneal adenopathy, hemorrhage or masses. BOWEL AND PERITONEAL CAVITY: Colonic diverticulosis without evidence of diverticulitis. There is no bowel obstruction. No bowel wall thickening. Small hiatal hernia. No significant inflammatory lock ge. No ascites or pneumoperitoneum. APPENDIX: Normal. PELVIS: Post hysterectomy. No adnexal mass. Urinary bladder is moderately distended. No bladder wa ll thickening, intraluminal bladder mass or debris. ABDOMINAL WALL: No masses. No hernias. BONES: Sclerotic appearance of the right pubic symphysis is stable from prior examination, probably h ealed posttraumatic injury. Multilevel spondylosis and degenerative disc disease in the thoracic and lumbar spine. No acute fracture. No suspicious bone lesions. OTHER: No other significant finding. IMPRESSION: 1. Colonic diverticulosis without evidence of diverticulitis. No bowel obstruction. TECHNICAL DOCUMENTATION: JOB ID: [id number] Quality ID # [id number]: Final reports with documentation of one or more dose reduction techniques (e.g., Au tomated exposure control, adjustment of the mA and/or kV according to patient size, use of iterative reconstruction technique) 2010 [employer]- All Rights Reserved Reading location - IP/workstation name: [email or web address]
[2020-08-14] MEDS ORDERED: KETOROLAC TROMETHAMINE INJ/PF 30 MG/1 ML SDV IV ONE (11:56)
[2020-08-14] MEDS ORDERED: DEXAMETHASONE SOD PHOS INJ 10 MG/1 ML VIAL IV ONE (12:20)
[2020-08-14 13:36] VITALS: BP 164/82
[2020-08-14] MEDS ORDERED: ONDANSETRON HCL INJ/PF 4 MG/2 ML SDV IV ONE (13:40)
[2020-08-14] MEDS ORDERED: MORPHINE SULFATE 10 MG/ML INJ IV ONE (13:40)
== END 2020-08-14 14:32 | disposition home or self-care (01) ==
LOC: ER 05:43
DX: M54.40 Lumbago with sciatica, unspecified side (principal); N30.90 Cystitis, unspecified without hematuria; G89.4 Chronic pain syndrome
CPT/HCPCS: 99285; 96374; 96375; 36415; 87086; 85025; 80053; 81001; 74177; J1885; J2270; J2405; J1100